=== PATIENT | female | born 1975 | race Caucasian/White ===

== ENCOUNTER 2019-11-03 16:06 | Observation (INO) ==
[2019-11-03 17:24] LABS: Acetaminophen < 10 mcg/mL (10-20); BUN/Creatinine Ratio 15 (6-26); Blood Urea Nitrogen 13 mg/dL (6-20); Calcium 8.9 mg/dL (8.6-10.3); Carbon Dioxide 21 mEq/L (23-29); Chloride 107 mEq/L (98-107); Ethanol < 10 mg/dL (Less than 10); Glucose 83 mg/dL (70-105); Osmolality,Calculated 289 (280-300); Salicylate < 2.5 mg/dL (15.0-30.0); Sodium 140 mEq/L (136-145); eGFR For African Americans > 60 (> 60); eGFR For Non-African Americans > 60 (> 60)
[2019-11-03 17:37] LABS: Bilirubin,Urine Negative (Negative); Blood,Urine Negative (Negative); Clarity,Urine Clear (Clear); Color,Urine Orange (Yellow); Glucose,Urine (UA) Normal (Normal); Ketones,Urine Negative (Negative); Leukocyte Esterase,Urine Negative (Negative); Nitrite,Urine Positive (Negative); Protein,Urine Negative (Neg-Trace); Specific Gravity,Urine 1.012 (1.010-1.025); Urobilinogen,Urine Normal (Normal)
[2019-11-03 17:38] LABS: Amphetamine Screen,Urine Negative ng/mL (Cutoff=1000); Barbiturate Screen,Urine Negative ng/mL (Cutoff=200); Benzodiazepines Screen,Urine Negative ng/mL (Cutoff=200); Cannabinoid Screen,Urine Negative ng/mL (Cutoff = 50); Cocaine Screen,Urine Negative ng/mL (Cutoff= 300); Opiate Screen,Urine Negative ng/mL (Cutoff=300); Phencyclidine Screen,Urine Negative ng/mL (Cutoff=25)
[2019-11-03 17:40] LABS: Bacteria,Urine None Seen per hpf (None-Few); Hyaline Casts,Urine None Seen per lpf (None-Few); Squamous Epithelial Cell,Urine Moderate per lpf (None-Few); WBC,Urine 0-3 per hpf (0-3)
[2019-11-03 17:50] LABS: Hematocrit 40.5 % (35.3-44.9); Hemoglobin 13.6 g/dL (11.5-15.4); Mean Corpuscular HGB Conc 33.6 g/dL (31.6-35.5); Mean Corpuscular Hemoglobin 29.3 pg (28.0-33.3); Mean Corpuscular Volume 87.3 fL (83.0-100.0); Platelet Count 318 K/mcL (140-400); Red Blood Count 4.64 M/mcL (3.82-4.97); Red Cell Distribution Width 13.7 % (11.5-14.5); White Blood Count 10.5 K/mcL (4.3-11.1)
[2019-11-03] MEDS ORDERED: hydrOXYzine pamoate 25 MG CAPSULE PO PRN (20:28)
[2019-11-03] MEDS ORDERED: traZODone 50 MG TABLET PO PRN (20:28)
[2019-11-03] MEDS ORDERED: *HR* LORazepam 1 MG TABLET PO PRN (20:28)
[2019-11-03] MEDS ORDERED: MOM Conc 10 ML UD.LIQ PO PRN (20:28)
[2019-11-03] MEDS ORDERED: Ibuprofen 400 MG TABLET PO PRN (20:28)
[2019-11-03] MEDS ORDERED: Mag Hydrox/Al Hydrox/Simeth 30 ML UDC PO PRN (20:28)
[2019-11-03] MEDS ORDERED: *HR* LORazepam 2 MG/ML VIAL IM PRN (20:28)
[2019-11-03] MEDS ORDERED: Haloperidol Lactate 5 MG/ML VIAL IM PRN (20:28)
[2019-11-03] MEDS: Nicotine 2 MG GUM BC PRN (21:18)
[2019-11-04] MEDS ORDERED: NON-FORMULARY MEDICATION 1 EACH EACH (Fluticasone Propionate [Flovent Hfa] 2 PUFF) IH SCH (10:44)
[2019-11-04] MEDS ORDERED: NON-FORMULARY MEDICATION 1 EACH EACH (Salmeterol Xinafoate [Serevent Diskus] 50 MCG) IN SCH (11:00)
[2019-11-04] MEDS: Nicotine 2 MG GUM BC PRN ×2 (14:20→21:40)
[2019-11-04] MEDS ORDERED: traZODone 50 MG TABLET PO SCH (21:00)
[2019-11-04 21:16] VITALS: BP 127/77
[2019-11-04] MEDS: Budesonide/Formoterol 80/4.5 1 PUFF INH IH SCH (22:07)
[2019-11-05] MEDS: Budesonide/Formoterol 80/4.5 1 PUFF INH IH SCH (12:53)
[2019-11-05] MEDS: Nicotine 2 MG GUM BC PRN (14:18)
== END 2019-11-05 14:55 | disposition home or self-care (01) ==
LOC: EMEROOARM 16:06 → 1ANU 16:06
PROVIDERS: ADMIT Psychiatry & Neurology Psychiatry; ATTEND Psychiatry & Neurology Psychiatry

== ENCOUNTER 2020-07-28 13:34 | Inpatient (IN) ==
[2020-07-28 14:10] LABS: Basophils % 0.4 %; Eosinophils # 0.2 K/mcL (0.0-0.6); Eosinophils % 1.5 %; Hematocrit 39.7 % (35.3-44.9); Hemoglobin 13.1 g/dL (11.5-15.4); Immature Granulocytes % 0.4 % (0-4); Lymphocytes # 2.2 K/mcL (0.6-4.6); Lymphocytes % 19.5 %; Mean Corpuscular Hemoglobin 27.8 pg (28.0-33.3); Mean Corpuscular Volume 84.3 fL (83.0-100.0); Mean Platelet Volume 9.7 fL (9.4-12.4); Monocytes # 0.7 K/mcL (0.0-1.3); Monocytes % 6.3 %; Platelet Count 321 K/mcL (140-400); Red Blood Count 4.71 M/mcL (3.82-4.97); Red Cell Distribution Width 13.4 % (11.5-14.5); Segmented Neutrophils % 71.9 %; White Blood Count 11.1 K/mcL (4.3-11.1)
[2020-07-28 14:15] LABS: Bacteria,Urine Few per hpf (None-Few); Bilirubin,Urine Negative (Negative); Blood,Urine Moderate (Negative); Clarity,Urine Clear (Clear); Color,Urine Light-Yellow (Yellow); Glucose,Urine (UA) Normal (Normal); Ketones,Urine Negative (Negative); Leukocyte Esterase,Urine Moderate (Negative); Mucus,Urine Few per lpf (None-Few); Nitrite,Urine Negative (Negative); PH,Urine 6.5 pH Units (5.0-8.0); Protein,Urine Trace mg/dL (Neg-Trace); RBC,Urine 0-3 per hpf (0-3); Specific Gravity,Urine 1.018 (1.010-1.025); Squamous Epithelial Cell,Urine Few per hpf (None-Few); Urobilinogen,Urine Normal (Normal); WBC,Urine 15-30 per hpf (0-3)
[2020-07-28 14:24] LABS: Amphetamine Screen,Urine Negative ng/mL (Cutoff=1000); Barbiturate Screen,Urine Negative ng/mL (Cutoff=200); Benzodiazepines Screen,Urine Negative ng/mL (Cutoff=200); Cannabinoid Screen,Urine Negative ng/mL (Cutoff = 50); Cocaine Screen,Urine Negative ng/mL (Cutoff= 300); Opiate Screen,Urine Negative ng/mL (Cutoff=300); Phencyclidine Screen,Urine Negative ng/mL (Cutoff=25)
[2020-07-28 14:30] LABS: Estimated Average Glucose 117 mg/dl
[2020-07-28 14:31] LABS: Acetaminophen < 10 mcg/mL (10-20); Alanine Aminotransferase 14 Units/L (7-52); Albumin 4.4 g/dL (3.5-5.7); Albumin/Globulin Ratio 1.3 (1.1-2.2); Alkaline Phosphatase 73 Units/L (34-104); Aspartate Amino Transferase 15 Units/L (13-39); BUN/Creatinine Ratio 15 (6-26); Bilirubin,Indirect 0.3 mg/dL (0.0-1.0); Bilirubin,Total 0.3 mg/dL (0.3-1.0); Blood Urea Nitrogen 15 mg/dL (6-20); Calcium 9.5 mg/dL (8.6-10.3); Carbon Dioxide 23 mEq/L (23-29); Chloride 104 mEq/L (98-107); Ethanol < 10 mg/dL (Less than 10); Globulin 3.4 g/dL (2.4-3.5); Glucose 131 mg/dL (70-105); Osmolality,Calculated 285 (280-300); Potassium 3.6 mEq/L (3.5-5.1); Salicylate < 2.5 mg/dL (15.0-30.0); Sodium 136 mEq/L (136-145); Total Protein 7.8 g/dL (6.4-8.9); eGFR For African Americans > 60 (> 60); eGFR For Non-African Americans > 60 (> 60)
[2020-07-28] MEDS ORDERED: *HR* LORazepam 2 MG/ML VIAL IM PRN (15:54)
[2020-07-28] MEDS ORDERED: Acetaminophen 325 MG TABLET PO PRN (15:54)
[2020-07-28] MEDS ORDERED: haloperidoL 5 MG TABLET PO PRN (15:54)
[2020-07-28] MEDS ORDERED: MOM Conc 10 ML UD.LIQ PO PRN (15:54)
[2020-07-28] MEDS ORDERED: Haloperidol Lactate 5 MG/ML VIAL IM PRN (15:54)
[2020-07-28] MEDS ORDERED: hydrOXYzine pamoate 25 MG CAPSULE PO PRN (15:54)
[2020-07-28] MEDS ORDERED: *HR* LORazepam 1 MG TABLET PO PRN (15:54)
[2020-07-28] MEDS ORDERED: Docusate Oral Soln 100 MG/10 ML UDC PO SCH (18:00)
[2020-07-28] MEDS ORDERED: Nicotine 21 MG PATCH.TD24 TD ONE (18:02)
[2020-07-28] MEDS: traZODone 50 MG TABLET PO SCH (20:59)
[2020-07-29] MEDS: Nicotine 21 MG PATCH.TD24 TD SCH (08:34)
[2020-07-29] MEDS: ARIPiprazole 5 MG TABLET PO SCH (09:48)
[2020-07-29] MEDS: Budesonide/Formoterol 160/4.5 1 PUFF INH IH SCH ×2 (10:13→21:23)
[2020-07-29] MEDS: traZODone 50 MG TABLET PO SCH (21:22)
[2020-07-30] MEDS: Nicotine 21 MG PATCH.TD24 TD SCH (08:09)
[2020-07-30] MEDS: ARIPiprazole 5 MG TABLET PO SCH (08:10)
[2020-07-30 08:36] VITALS: BP 105/70
[2020-07-30] MEDS: Budesonide/Formoterol 160/4.5 1 PUFF INH IH SCH (09:48)
== END 2020-07-30 10:30 | disposition home or self-care (01) | DRG 753 ==
LOC: EMEROOARM 13:34 → 1ANU 15:47 → INTOOBSV 15:47 → 1ANU 16:44 → SUATTDRO 07-29 12:06
PROVIDERS: ADMIT Psychiatry & Neurology Psychiatry; ATTEND Psychiatry & Neurology Psychiatry